=== PATIENT | male | born 1980 | race Caucasian/White ===

== ENCOUNTER 2019-01-22 21:10 | Emergency (ER) | payer BC ==
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
[2019-01-22 23:07] VITALS: BP 117/73
--- NOTE | 2019-01-23 08:01 | UC ---
- Progress Note Progress Note: Order Information: TIBIA FIBULA LEFT Accession Number: [id number] CPT: 28709 HISTORY: injury ., Left foreleg pain, injury COMPARISONS: None relevant available at the time of dictation. VIEWS: 2, Frontal and lateral views of the left foreleg FINDINGS: BONE DENSITY: Normal. BONES: There is no displaced fracture. JOINTS: There is no arthropathy. ALIGNMENT: There is no dislocation. SOFT TISSUES: Unremarkable. OTHER FINDINGS: There is triangular radiopaque foreign body along the fibular head measuring 0.4 cm. IMPRESSION: SMALL RADIOPAQUE FOREIGN BODY OF THE SOFT TISSUES ALONG THE PROXIMAL FIBULA.. NO ACUTE OSSEOUS INJURY. IF SYMPTOMS PERSIST, RECOMMEND REPEAT IMAGING. UC note indicates FB is NOT from this injury. Order Information: RIBS LT UNI W/PA CH MIN 3 VWS Accession Number: [id number] CPT: 58920 HISTORY: injury left rib pain, trauma COMPARISONS: None relevant available at the time of dictation. VIEWS: 9, Frontal view of the chest with frontal and oblique views of the left hemithorax FINDINGS: There is no displaced rib fracture or pneumothorax. The visualized lungs are clear. The questionable nondisplaced eighth rib fracture noted in the preliminary assessment is not clearly evident on the submitted images. IMPRESSION: NO DISPLACED RIB FRACTURE OR PNEUMOTHORAX. Course/Dx - Course Course Of Treatment: FB not from this event. No rib fx seen. No change in tx. - Diagnoses Provider Diagnoses: Scalp abrasion, Contusion of face, Laceration of lower lip, Fracture of rib of left side, Contusion of leg, left, Contusion of right leg Discharge - Sign-Out/Discharge Documenting (check all that apply): Patient Departure All imaging exams completed and their final reports reviewed: Yes - Discharge Plan Condition: Stable Disposition: HOME Patient Education Materials: Rib Fracture (ED), Contusion in Adults (ED), Abrasion (ED), Skin Adhesive Care (ED), Facial Contusion (ED) Referrals: [facility] [place] [facility] [Outside] - 2 Weeks Additional Instructions: Your official XR results are pending Left lower leg shows a metallic foreign body (not from this injury) CXR- I suspect a non displaced rib fracture of the left Please call around 9 AM for official results rest ice tylenol for pain while awake please take deep breaths every hour recheck for new or worsening symptoms I don't suspect any clinically significant facial fracture but if not improving in a timely fashion we may need to further image you To ER for worsening left sided chest pain or shortness of breath - Billing Disposition and Condition Condition: STABLE Disposition: Home
== END 2019-01-22 23:40 | disposition home or self-care (01) ==
LOC: UCEAST 21:10
DX: S01.511A Laceration without foreign body of lip, initial encounter (principal); S22.32XA Fracture of one rib, left side, initial encounter for closed fracture; M79.5 Residual foreign body in soft tissue; S00.01XA Abrasion of scalp, initial encounter; S80.12XA Contusion of left lower leg, initial encounter; S80.11XA Contusion of right lower leg, initial encounter; W19.XXXA Unspecified fall, initial encounter; Y92.9 Unspecified place or not applicable; Y93.H9 Activity, other involving exterior property and land maintenance, building and construction; F17.210 Nicotine dependence, cigarettes, uncomplicated
CPT/HCPCS: 12011; 99202; G0463

== ENCOUNTER → 2019-01-30 13:57 | Emergency (ER) | payer BC ==
[2019-01-30 14:03] VITALS: BP 112/32
== END | disposition left against medical advice (07) ==
LOC: ED 13:57
DX: R10.9 Unspecified abdominal pain (principal); Z53.21 Procedure and treatment not carried out due to patient leaving prior to being seen by health care provider